=== PATIENT | female | born 1975 | race Caucasian/White ===

== ENCOUNTER → 2016-06-12 | Outpatient (CLI) | payer MEDICAID ==
--- NOTE | 2016-06-12 12:27 | MM ---
Reason for exam: clinical finding. Last mammogram was performed 1 year and 5 months ago. History: Benign US RT VAD breast biopsy of the right breast, February 25, 2013. Benign right breast aspiration of the right breast, February 25, 2013. Took hormonal contraceptives for 5 years. Indicated problem(s): lump or thickening in the left breast. Physical Findings: Nurse did not find any significant physical abnormalities on exam. MG 3D Diag Mammo W/Cad SAMY Bilateral CC and MLO view(s) were taken. Prior study comparison: January 03, 2015, bilateral MG 3d diag mammo w/cad SAMY. July 27, 2013, right breast MG diagnostic mammo RT w CAD. There are stable benign calcifications. There is no discrete abnormality including area of concern. These results were verbally communicated with the patient and result sheet given to the patient on 06/12/16. ASSESSMENT: Incomplete: need additional imaging evaluation, BI-RAD 0 RECOMMENDATION: Ultrasound of the left breast. Manage patient on a clinical basis.
--- NOTE | 2016-06-12 12:30 | USB ---
Reason for exam: additional evaluation requested from abnormal screening. History: Benign US RT VAD breast biopsy of the right breast, February 25, 2013. Benign right breast aspiration of the right breast, February 25, 2013. Took hormonal contraceptives for 5 years. US Breast LT Left breast ultrasound includes all four quadrants, the retroareolar region and axilla. Finding demonstrate a 4 x 2 x 5mm oval, cystic lesion at 1 o'clock, a 20 x 9 x 23mm oval, cystic lesion at 3 o'clock, a 5 x 5 x 6mm oval, cystic lesion at 3 o'clock, a 9 x 4 x 6mm oval, cystic lesion at 10 o'clock and a 4 x 3 x 3 round, cystic lesion with debris at the nipple for which a 6 month follow up is recommended. These results were verbally communicated with the patient and result sheet given to the patient on 06/12/16. ASSESSMENT: Probably benign, BI-RAD 3 RECOMMENDATION: Ultrasound of the left breast in 6 months. Manage patient on a clinical basis.
== END | disposition home or self-care (01) ==
LOC: RADMAMWWP 07:19
PROVIDERS: ATTEND Obstetrics & Gynecology
DX: R92.2 Inconclusive mammogram (principal); N63 Unspecified lump in breast; N60.09 Solitary cyst of unspecified breast; R92.8 Other abnormal and inconclusive findings on diagnostic imaging of breast
CPT/HCPCS: 76641; G0204; G0279

== ENCOUNTER → 2016-08-28 | Outpatient (CLI) | payer MEDICAID ==
[2016-08-28 07:30] LABS: CH 28.3; CHCM 34.8; HCT 42.1 % (34.0-46.0); HDW 2.47; HGB 14.7 gm/dL (11.4-16.0); MCH 28.5 pg (25.0-35.0); MCHC 34.9 g/dL (31.0-37.0); MCV 81.7 fL (80.0-100.0); Mean Platelet Volume 7.1; RBC 5.16 m/uL (3.80-5.40); RDW 13.3 % (11.5-15.5); WBC 6.6 k/uL (3.8-10.6)
[2016-08-28 07:49] LABS: ALT 29 U/L (9-52); AST 24 U/L (14-36); Alkaline Phosphatase 61 U/L (38-126); Anion Gap 12 mmol/L; Blood Urea Nitrogen 18 mg/dL (7-17); Calcium 9.9 mg/dL (8.4-10.2); Carbon Dioxide 23 mmol/L (22-30); Chloride 106 mmol/L (98-107); Cholesterol 173 mg/dL (<200); Glucose 94 mg/dL (74-99); HDL Cholesterol 85 mg/dL (40-60); Non-African American GFR(MDRD) >60 (>60 ml/min/1.73 sqM); Potassium 4.3 mmol/L (3.5-5.1); Sodium 141 mmol/L (137-145); Total Bilirubin 0.5 mg/dL (0.2-1.3); Total Protein 7.1 g/dL (6.3-8.2); Triglycerides 59 mg/dL (<150)
== END | disposition home or self-care (01) ==
LOC: LABWHC1 06:45
PROVIDERS: ATTEND Family Medicine
DX: Z00.00 Encounter for general adult medical examination without abnormal findings (principal)
CPT/HCPCS: 36415; 80053; 80061; 82306; 84443; 85027

== ENCOUNTER 2016-09-21 09:11 | Day surgery (SDC) | payer MEDICAID ==
[2016-09-18 13:02] VITALS: BMI 25.7
[~2016-09-21 09:11] MED LIST: LACTATED RINGERS 1,000 ML IV SCH; LIDOCAINE 1% 20 ML VIAL (10MG/ML) FOR IV START INTRADERMA PRN
[2016-09-21 10:35] VITALS: TEMP 97.9
[2016-09-21] MEDS ORDERED: PROPOFOL 10 MG/ML 20 ML VIAL IV ONE (11:11)
--- NOTE | 2016-09-21 11:32 | P.PCN ---
Date of Procedure: 09/21/16 Preoperative Diagnosis: Postoperative Diagnosis: Procedure(s) Performed: BRIEF HISTORY: Patient is a 41-year-old pleasant white female, scheduled for an elective colonoscopy as a part of screening for colorectal neoplasia. She does have family history of colon cancer in both her maternal grandparents. PROCEDURE PERFORMED: Colonoscopy. PREOPERATIVE DIAGNOSIS: Screening for colon cancer/family history of colon cancerIV sedation per Anesthesia. PROCEDURE: After informed consent was obtained, the patient, was brought into the endoscopy unit. IV sedation was administered by Anesthesia under continuous monitoring. Digital rectal examination was normal. Initially the Olympus CF- 160 flexible video colonoscope was then inserted in the rectum, gradually advanced into the cecum without any difficulty. Careful examination was performed as the scope was gradually being withdrawn. Ileocecal valve and the appendiceal orifice were visualized and appeared normal. Prep was excellent. Mucosa of the cecum, ascending colon, transverse colon, descending colon, sigmoid colon, and rectum appeared normal. Retroflexion was performed in the rectum and no lesions were seen. The patient tolerated the procedure well. IMPRESSION: Normal-appearing colon from rectum to cecum with no evidence of colorectal neoplasia . RECOMMENDATIONS: Findings of this examination were discussed with the patient as well as her family. She was advised to have a repeat screening colonoscopy in 5 years. Implants: Indications for Procedure: Operative Findings: Description of Procedure:
[2016-09-21 11:54] VITALS: BP 126/80; PULSE 85; RESP 18
== END 2016-09-21 12:13 | disposition home or self-care (01) ==
LOC: ORWHC2ENDO 09:11
PROVIDERS: ATTEND Internal Medicine Gastroenterology
DX: Z12.11 Encounter for screening for malignant neoplasm of colon (principal); Z80.0 Family history of malignant neoplasm of digestive organs; Z87.891 Personal history of nicotine dependence; F39 Unspecified mood [affective] disorder; Z79.899 Other long term (current) drug therapy
CPT/HCPCS: J2704; G0105

== ENCOUNTER 2017-02-05 06:35 | Emergency (ER) | payer MEDICAID ==
[2017-02-05 06:42] VITALS: PULSE 78
--- NOTE | 2017-02-05 07:56 | XR ---
EXAMINATION TYPE: XR finger RT DATE OF EXAM: 02/05/2017 COMPARISON: NONE HISTORY: Fell at gym bent thumb pain and swelling TECHNIQUE: Three-view right thumb FINDINGS: There is a comminuted fracture at the base of the distal phalanx right thumb. This has both transverse and longitudinal fracture fragments. Longitudinal fracture fragment extends in the mid ar ticular surface. Soft tissue swelling is present. IMPRESSION: 1. Comminuted fracture with intra-articular extension base of the distal phalanx right thumb
--- NOTE | 2017-02-05 08:10 | ED ---
General Adult HPI - General Chief complaint: Extremity Injury, Upper Stated complaint: hand injury Time Seen by Provider: 02/05/17 07:00 Source: patient, RN notes reviewed Mode of arrival: ambulatory Limitations: no limitations - History of Present Illness Initial comments: 42-year-old female presenting for evaluation of right thumb pain. Patient was exercising this morning, she was standing on a weight bench, fell and supported her fall with her right hand. She believes she struck her thumb on a piece of exercise equipment. She has had worsening pain in her thumb. Denies any hand pain. Denies any forearm or elbow pain. No head or neck trauma. No other trauma reported. Patient has no significant past medical history. Injury occurred approximately one hour prior to arrival. - Related Data Home Medications Medication Instructions Recorded Confirmed Escitalopram [Lexapro] 10 mg PO HS 09/18/16 02/05/17 Multivitamins, Thera [Multivitamin 1 tab PO AC-BRKFST 02/05/17 02/05/17 (formulary)] Allergies Allergy/AdvReac Type Severity Reaction Status Date / Time No Known Allergies Allergy Verified 02/05/17 07:27 Review of Systems ROS Statement: Those systems with pertinent positive or pertinent negative responses have been documented in the HPI. ROS Other: All systems not noted in ROS Statement are negative. 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 , FAMILY HX OF COLON CANCER. History of Any Multi-Drug Resistant Organisms: None Reported Past Surgical History: Adenoidectomy, Appendectomy, Breast Surgery, Hysterectomy , Tonsillectomy, Tubal Ligation Additional Past Surgical History / Comment(s): URETHRAL CYST, BREAST BX, VAGINAL HYSTERECTOMY WITH RECTOCELE REPAIR. Past Anesthesia/Blood Transfusion Reactions: No Reported Reaction, Motion Sickness Past Psychological History: Anxiety, Panic Disorder Smoking Status: Former smoker Past Alcohol Use History: Occasional Past Drug Use History: None Reported - Past Family History Mother Family Medical History: Cancer Father Family Medical History: Cancer General Exam Limitations: no limitations General appearance: alert, in no apparent distress Head exam: Present: atraumatic, normocephalic Eye exam: Present: normal appearance, PERRL ENT exam: Present: normal exam Neck exam: Present: normal inspection, full ROM. Absent: tenderness Respiratory exam: Present: normal lung sounds bilaterally. Absent: respiratory distress Cardiovascular Exam: Present: regular rate, normal rhythm Extremities exam: Present: other (Right hand, no bony tenderness over the metacarpals, no pain at the snuffbox, digits 2 through 4 and within normal limits, digit one has tenderness over the distal phalanx and decreased range of motion at the distal IP. There is overlying swelling and ecchymosis. No pain at the proximal joint) Neurological exam: Present: alert, oriented X3 Psychiatric exam: Present: normal affect, normal mood Skin exam: Present: warm, dry Course Vital Signs 02/05/17 02/05/17 06:39 08:28 Temperature 98 F 97.7 F Pulse Rate 78 78 Respiratory 18 20 Rate Blood Pressure 126/72 118/74 O2 Sat by Pulse 98 100 Oximetry Procedures - Orthopedic Splinting/Casting Injury #1 Side: right Upper Extremity Injury Location: hand, finger Upper Extremity Immobilizer: thumb spica, synthetic pre-padded splint Additional Comments: Neurovascularly intact pre-and post-splint. Medical Decision Making - Medical Decision Making 42-year-old female with right thumb injury. X-ray shows comminuted fracture with intra-articular extension at the base of the distal phalanx of the right thumb. This x-ray is reviewed by myself. Given the intra-articular injury, patient is placed in a splint and given hand surgery follow-up. Disposition Clinical Impression: Thumb fracture Disposition: HOME SELF-CARE Condition: Good Instructions: Finger Fracture (ED) Referrals: Trino Arredondo DO [Primary Care Provider] - 1-2 days Seamus Patel DO [Doctor of Osteopathic Medicine] - 1-2 days Time of Disposition: 08:10
[2017-02-05 08:29] VITALS: BP 118/74; RESP 20; TEMP 97.7
== END 2017-02-05 08:30 | disposition home or self-care (01) ==
LOC: EC 06:35
DX: S62.521A Displaced fracture of distal phalanx of right thumb, initial encounter for closed fracture (principal); F41.0 Panic disorder [episodic paroxysmal anxiety]; Z87.891 Personal history of nicotine dependence; Z79.899 Other long term (current) drug therapy; W18.01XA Striking against sports equipment with subsequent fall, initial encounter
CPT/HCPCS: 29125; 99283

== ENCOUNTER → 2017-08-08 | Outpatient (CLI) | payer MEDICAID ==
--- NOTE | 2017-08-09 04:02 | MR ---
EXAMINATION TYPE: MR ankle RT wo con DATE OF EXAM: 08/08/2017 COMPARISON: NONE HISTORY: Right Ankle, Pain in Ankle and Arch Standard multiplanar, multisequence MRI departmental protocol Multiplanar, multisequence images of the ankle were acquired. FINDINGS: The Achilles tendon is intact. Plantar fascia appears normal. There is a mild ankle joint e ffusion. There is fluid in the subtalar joint. The collateral ligaments are intact. The medial and la teral flexor tendons of the ankle are intact. Extensor tendons are intact. On the T2 images there is mild increased signal in the navicular bone with a bone bruise. There is no evidence of a fracture. I see no bony destructive process. IMPRESSION: There is mild ankle joint and subtalar joint effusion consistent with nonspecific synovitis. There is a mild bone bruise of the navicular. No fracture line seen. No evidence of ligament or tendon tear.
== END | disposition home or self-care (01) ==
LOC: RADMRIMAIN 18:41
PROVIDERS: ATTEND Orthopaedic Surgery
DX: M25.471 Effusion, right ankle (principal); S90.01XA Contusion of right ankle, initial encounter

== ENCOUNTER → 2017-11-27 | Outpatient (CLI) | payer MEDICAID ==
--- NOTE | 2017-11-27 12:28 | MM ---
Reason for exam: clinical finding. Last mammogram was performed 1 year and 5 months ago. History: Benign US RT VAD breast biopsy of the right breast, February 25, 2013. Benign right breast aspiration of the right breast, February 25, 2013. Took hormonal contraceptives for 5 years. Physical Findings: Nurse Summary: 0.5 x 0.5cm nodule in the right breast at 12 o'clock and a 1.5 x 1cm nodule in the left breast at 2 o'clock (nurse ts). MG 3D Diag Mammo W/Cad SAMY Bilateral CC and MLO view(s) were taken. LM, CC with magnification, and ML with magnification view(s) were taken of the left breast. Prior study comparison: June 12, 2016, bilateral MG 3d diag mammo w/cad SAMY. January 03, 2015, bilateral MG 3d diag mammo w/cad SAMY. The breast tissue is extremely dense which could obscure a lesion on mammography. There is a group of calcifications upper inner quadrant at posterior depth on left breast, magnifications view to be done. After magnifications views calcifications are course heterogeneous and increasing from priors. Biopsy markers noted. These results were verbally communicated with the patient and result sheet given to the patient on 11/27/17. ASSESSMENT: Incomplete: need additional imaging evaluation, BI-RAD 0 RECOMMENDATION: Ultrasound of the right breast. (palpable)
--- NOTE | 2017-11-27 12:31 | USB ---
Reason for exam: clinical finding. History: Benign US RT VAD breast biopsy of the right breast, February 25, 2013. Benign right breast aspiration of the right breast, February 25, 2013. Took hormonal contraceptives for 5 years. US Breast Limited BILAT Right limited breast ultrasound including focal area of concern, retroareolar and axilla demonstrates a 1.2 x 1.1 x 1.6cm oval, cystic lesion at 9 o'clock and a 1.8 x 0.8 x 1.8cm lobular, cystic lesion at 10 o'clock. Benign. Left complete breast ultrasound includes all four quadrants, the retroareolar region and axilla. Finding demonstrates a 2.6 x 1.7 x 2.8cm oval, cystic lesion at 3 o'clock BB and a 0.5 x 0.3 x 0.5cm oval, cystic lesion at 9 o'clock. Benign. These results were verbally communicated with the patient and result sheet given to the patient on 11/27/17. ASSESSMENT: Suspicious, BI-RAD 4 RECOMMENDATION: Stereotactic core biopsy of the left breast. Called Dr. Paez with mammographic findings and has scheduled an appointment for the patient for 12/19/17 at 10:[address] Fitzpatrick. Biopsy scheduled for 11/28/17 at 8:00. PRELIMINARY REPORT CALLED AND FAXED TO DR. FITZPATRICK ON 11/27/17.
== END | disposition home or self-care (01) ==
LOC: RADMAMWWP 07:24
PROVIDERS: ATTEND Obstetrics & Gynecology
DX: R92.8 Other abnormal and inconclusive findings on diagnostic imaging of breast (principal)
CPT/HCPCS: 77062; 77066

== ENCOUNTER → 2017-11-28 | Day surgery (SDC) | payer MEDICAID ==
[2017-11-28 07:14] VITALS: RESP 16; BMI 27.4
[2017-11-28 09:24] VITALS: BP 122/80; PULSE 78; TEMP 98.6
--- NOTE | 2017-11-28 09:30 | MM ---
EXAMINATION TYPE: MG stereo VAD BX LT DATE OF EXAM: 11/28/2017 COMPARISON: Prior mammogram November 27, 2017 and older studies. CLINICAL HISTORY: Abnormal mammogram TECHNIQUE: Stereotactic guided core biopsy of left breast with clip placement and follow-up two-view mammogram. FINDINGS: The procedure of stereotactic guided core biopsy was explained to the patient. Benefits, alternatives, and risks were discussed. An informed consent was then obtained. Cranial approach was chosen as calcifications are best seen on cc views. I performed the localization, then performed the remainder of the procedure. A vacuum assisted biopsy gun was used to obtain multiple core samples. The patient tolerated the procedure well without any immediate complication. The patient was kept in the radiology department for short stay after the procedure and then discharged home in stable condition. Targeted calcifications are identified in specimen mammogram. Post biopsy mammogram shows the clip to appear less than 1 cm superior to position relative to the targeted area of concern on the preprocedure images. IMPRESSION: SUCCESSFUL, UNCOMPLICATED STEREOTACTIC GUIDED CORE BIOPSY OF AREA OF CONCERN IN THE LEFT BREAST, FULL PATHOLOGY RESULTS TO FOLLOW. Intermediate index of suspicion noted at time of procedure. Pathology Results: Benign BREAST, LEFT, STEREOTACTIC CORE BIOPSY: Fibrocystic changes including cysts, fibrosis, columnar cell change, and sclerosing adenosis with calcifications. Focal pseudoangiomatous stromal hyperplasia (PASH). Recommendation Surgical consult of the left breast. (PASWinifred) LAW
== END ==
LOC: RADMAMWWP 07:03
PROVIDERS: ATTEND Surgery
DX: N60.32 Fibrosclerosis of left breast (principal); N60.22 Fibroadenosis of left breast; N62 Hypertrophy of breast; R92.1 Mammographic calcification found on diagnostic imaging of breast; R92.8 Other abnormal and inconclusive findings on diagnostic imaging of breast
CPT/HCPCS: 88305; 19081; A4648; J2001

== ENCOUNTER → 2018-02-03 | Outpatient (CLI) | payer MEDICAID ==
--- NOTE | 2018-02-03 23:05 | MR ---
EXAMINATION TYPE: MR shoulder LT wo con DATE OF EXAM: 02/03/2018 COMPARISON: None HISTORY: Lt shoulder pain x 6 mos TECHNIQUE: Multiplanar, multisequence imaging of the left shoulder is performed without contrast. FINDINGS: The supraspinatus tendon is intact. There is minor spurring on the inferior aspect of the AC joint an d minimal subacromial impingement. The glenoid ventura appear intact. Biceps tendon is intact. Subscapu priti tendon is intact. There is no evidence of a fracture. I see no bony destructive process. IMPRESSION: Mild spurring at the AC joint and minimal subacromial impingement. Otherwise negative exam. No eviden ce of rotator cuff tear.
== END | disposition home or self-care (01) ==
LOC: RADMRIMAIN 19:02
PROVIDERS: ATTEND Family Medicine
DX: M75.82 Other shoulder lesions, left shoulder (principal); M25.812 Other specified joint disorders, left shoulder

== ENCOUNTER → 2018-06-02 | Outpatient (CLI) | payer MEDICAID ==
--- NOTE | 2018-06-02 10:10 | MM ---
Reason for exam: follow-up at short interval from prior study. Last mammogram was performed 6 months ago. History: Benign MG stereo VAD BX LT of the left breast, November 28, 2017. Benign US RT VAD breast biopsy of the right breast, February 25, 2013. Benign right breast aspiration of the right breast, February 25, 2013. Took hormonal contraceptives for 5 years. Physical Findings: Nurse did not find any significant physical abnormalities on exam. MG 3D Diag Mammo W/Cad LT CC and MLO view(s) were taken of the left breast. Prior study comparison: November 27, 2017, bilateral MG 3d diag mammo w/cad SAMY. June 12, 2016, bilateral MG 3d diag mammo w/cad SAMY. The breast tissue is extremely dense which could obscure a lesion on mammography. Previous mammotome biopsy in the left breast. There is chronic nodularity in the left breast posterior upper outer correlates with cysts on ultrasound 11/27/17. These results were verbally communicated with the patient and result sheet given to the patient on 06/02/18. ASSESSMENT: Benign, BI-RAD 2 RECOMMENDATION: Follow-up diagnostic mammogram of both breasts in 6 months. Back on schedule.
== END ==
LOC: RADMAMWWP 06:56
PROVIDERS: ATTEND Surgery
DX: R92.8 Other abnormal and inconclusive findings on diagnostic imaging of breast (principal)
CPT/HCPCS: 77061; 77065

== ENCOUNTER → 2018-08-06 | Outpatient (CLI) | payer MEDICAID ==
[2018-08-06 08:36] LABS: Basophils % (A) 1 %; Eosinophils # (A) 0.2 k/uL (0-0.7); Eosinophils % (A) 3 %; HCT 43.8 % (34.0-46.0); Lymphocytes # (A) 1.1 k/uL (1.0-4.8); Lymphocytes % (A) 25 %; MCH 27.2 pg (25.0-35.0); MCHC 31.9 g/dL (31.0-37.0); MCV 85.1 fL (80.0-100.0); Mean Platelet Volume 7.1; Monocytes # (A) 0.3 k/uL (0-1.0); Monocytes % (A) 5 %; Neutrophils % (A) 64 %; Platelet Count 282 k/uL (150-450); RBC 5.14 m/uL (3.80-5.40); RDW 13.8 % (11.5-15.5); WBC 4.6 k/uL (3.8-10.6)
[2018-08-06 16:46] LABS: African American GFR (CKD) 71.7 (60.0-200.0); Albumin 4.3 g/dL (3.80-4.90); Albumin/Globulin Ratio 2.53 (1.60-3.17); Anion Gap 6.7 mmol/L (4.00-12.00); BUN/Creat Ratio 14.55 Ratio (12.00-20.00); Carbon Dioxide 26.3 mmol/L (21.6-31.8); Globulin 1.7 g/dL (1.6-3.3); Potassium 4.3 mmol/L (3.5-5.5); Total Bilirubin 0.5 mg/dL (0.2-1.2)
== END | disposition home or self-care (01) ==
LOC: LABWHC1 08:04
PROVIDERS: ATTEND Family Medicine
DX: R10.13 Epigastric pain (principal)
CPT/HCPCS: 36415; 80053; 82150; 83013; 83690; 85025

== ENCOUNTER → 2018-08-11 | Outpatient (CLI) | payer MEDICAID ==
--- NOTE | 2018-08-11 13:09 | US ---
EXAMINATION TYPE: US abdomen complete DATE OF EXAM: 08/11/2018 COMPARISON: 06/19/2012 ultrasound CLINICAL HISTORY: R10.9 abdominal pain. EXAM MEASUREMENTS: Liver Length: 12.0cm Gallbladder Wall: 0.2 cm CBD: 0.5m Spleen: 10.2 Right Kidney: 10.5 x 4.4 x 4.8cm Left Kidney: 9.8 x 4.2 x 4.2cm Extensive midline bowel gas Pancreas: Obscured by bowel gas Liver: previous hemangioma not seen on today's ultrasound Gallbladder: wnl Evidence for sonographic Elizalde's sign: no CBD: wnl Spleen: wnl Right Kidney: No hydronephrosis or masses seen Left Kidney: No hydronephrosis or masses seen Upper IVC: wnl Abd Aorta: wnl The liver is homogenous. The intrahepatic portion of the IVC and proximal abdominal aorta are within normal limits. There is no evidence of cholelithiasis. Common bile duct is unremarkable. The visu alized portions of the pancreas are homogenous. The spleen is unremarkable. Kidneys are symmetric a nd free of hydronephrosis. No renal lesions are seen. IMPRESSION: No sonographic evidence of cholelithiasis nor acute cholecystitis. Note the previously se en probable hemangioma on the exam of 06/19/2012 is not seen on today's examination.
== END | disposition home or self-care (01) ==
LOC: RADUSWWP 10:12
PROVIDERS: ATTEND Internal Medicine Geriatric Medicine
DX: R10.9 Unspecified abdominal pain (principal)
CPT/HCPCS: 76700

== ENCOUNTER 2018-09-06 07:32 | Day surgery (SDC) | payer MEDICAID ==
[2018-09-03 15:45] VITALS: BMI 29.2
[2018-09-06 07:41] VITALS: TEMP 97.2
[2018-09-06] MEDS ORDERED: LIDOCAINE 1% INJ 10MG/ML (20 ML MDV) ONE (08:37)
[2018-09-06] MEDS ORDERED: GLYCOPYRROLATE 0.2 MG/ML 2 ML VIAL ONE (08:37)
[2018-09-06] MEDS ORDERED: PROPOFOL 10 MG/ML 20 ML VIAL IV ONE (08:37)
--- NOTE | 2018-09-06 08:48 | P.PCN ---
Date of Procedure: 09/06/18 Procedure(s) Performed: BRIEF HISTORY: Patient is a 43-year-old, pleasant, white female, scheduled for an upper endoscopy as a part of evaluation long-standing history of GERD. She has been on Prilosec 20 mg daily but they have been was in symptoms and was increased to twice daily and symptoms are significantly improved. She is scheduled for an upper endoscopy were complicated reflux disease. PROCEDURE PERFORMED: Esophagogastroduodenoscopy with biopsy. PREOPERATIVE DIAGNOSIS: Long-standing history of GERD. IV sedation per anesthesia. PROCEDURE: After informed consent was obtained, the patient was brought into the endoscopy unit. IV sedation was administered by Anesthesia under continuous monitoring. Initially the Olympus GIF-140 video endoscope was inserted into the mouth. Esophagus intubated without any difficulty. It was gradually advanced into the stomach and duodenum and carefully examined. The bulb and the second part of the duodenum appeared normal. The scope at this time was withdrawn to the stomach, adequately insufflated with air, and upon careful examination, mucosa of the antrum had scattered erosions and biopsies were done from this area. The body, cardia and the fundus appeared normal. The scope was then withdrawn into the esophagus. small hiatal hernia noted. The GE junction was located at 35 cm from the incisors. There was a short tongue of Garcia's appearing mucosa extending 5 mm proximal to the GE junction and this was biopsied. The rest of the esophagus appeared normal. There were no erosions or ulcerations seen and the patient tolerated the procedure well. IMPRESSION: 1. Short tongue of Garcia's appearing mucosa just proximal to the GE junction status post biopsy 2. Mild antral gastritis 3. Small sliding Hiatal hernia RECOMMENDATIONS: The findings of this examination were discussed with the patient as well as her family. She was advised to follow with the biopsy results. She can continue with Prilosec 20 mg twice daily half hour before breakfast and dinnertime and follow antireflux measures. If the biopsy confirms the presence of Garcia's esophagus, she can have a repeat upper endoscopy in 2 years
[2018-09-06 09:11] VITALS: BP 132/65; PULSE 68; RESP 18
== END 2018-09-06 09:23 | disposition home or self-care (01) ==
LOC: ORWHC2ENDO 07:32
PROVIDERS: ATTEND Internal Medicine Gastroenterology
DX: K22.70 Barrett's esophagus without dysplasia (principal); K29.50 Unspecified chronic gastritis without bleeding; K21.0 Gastro-esophageal reflux disease with esophagitis; K44.9 Diaphragmatic hernia without obstruction or gangrene; Z87.891 Personal history of nicotine dependence; Z79.899 Other long term (current) drug therapy
CPT/HCPCS: 88305; 43239; J2001; J2704

== ENCOUNTER → 2018-12-08 | Outpatient (CLI) | payer MEDICAID ==
--- NOTE | 2018-12-08 11:45 | MM ---
Reason for exam: follow-up at short interval from prior study. Last mammogram was performed 6 months ago. History: Benign MG stereo VAD BX LT of the left breast, November 28, 2017. Benign US RT VAD breast biopsy of the right breast, February 25, 2013. Benign right breast aspiration of the right breast, February 25, 2013. Took hormonal contraceptives for 5 years. Physical Findings: Nurse Summary: 0.5-1cm nodule in the left breast at 12 o'clock, 3 o'clock (nurse kp). MG 3D Diag Mammo W/Cad SAMY Bilateral CC and MLO view(s) were taken. Prior study comparison: June 02, 2018, left breast MG 3d diag mammo w/cad LT. November 27, 2017, bilateral MG 3d diag mammo w/cad SAMY. Previous mammotome biopsy in the right and left breast. Two palpable markers on the left. Underlying circumscribed masses, one larger, one smaller in the left upper outer quadrant. Otherwise, no significant change. These results were verbally communicated with the patient and result sheet given to the patient on 12/08/18. ASSESSMENT: Incomplete: need additional imaging evaluation, BI-RAD 0 RECOMMENDATION: Ultrasound of the left breast. (12-4 o'clock)
--- NOTE | 2018-12-08 11:47 | USB ---
Reason for exam: additional evaluation requested from abnormal screening. History: Benign MG stereo VAD BX LT of the left breast, November 28, 2017. Benign US RT VAD breast biopsy of the right breast, February 25, 2013. Benign right breast aspiration of the right breast, February 25, 2013. Took hormonal contraceptives for 5 years. US Breast Limited LT Left limited breast ultrasound including focal area of concern, retroareolar and axilla demonstrates a 0.5 x 0.6 x 0.5cm cystic, benign lesion at 12 o'clock, a 1.6 x 1.9 x 0.7cm cystic, benign lesion at 1 o'clock and a 1.4 x 1.6 x 1.1cm cystic, benign lesion at 3 o'clock. Annual exam can be performed in diagnostic clinic. Scanned 12-4 o'clock. These results were verbally communicated with the patient and result sheet given to the patient on 12/08/18. ASSESSMENT: Probably benign, BI-RAD 3 RECOMMENDATION: Follow-up diagnostic mammogram of both breasts in 6 months.
== END | disposition home or self-care (01) ==
LOC: RADMAMWWP 09:35
PROVIDERS: ATTEND Surgery
DX: R92.8 Other abnormal and inconclusive findings on diagnostic imaging of breast (principal)
CPT/HCPCS: 77062; 77066

== ENCOUNTER 2019-01-23 19:56 | Emergency (ER) | payer MEDICAID, OTHER ==
[2019-01-23] MEDS ORDERED: ACETAMINOPHEN TAB 325 MG TAB PO STA (20:21)
--- NOTE | 2019-01-23 20:28 | ED ---
General Adult HPI - General Chief complaint: Head Injury Stated complaint: Headache Dizziness Time Seen by Provider: 01/23/19 20:05 Source: patient Mode of arrival: ambulatory Limitations: no limitations - History of Present Illness Initial comments: Patient is a 43-year-old female presenting to the emergency department with a chief complaint of head injury. She states yesterday she tripped, fell forward and hit her head on a metal door. Patient denies loss of consciousness at time of incident. She does report some nausea whenever she turns too quickly but denies any vomiting. Patient does report mild photosensitivity only very bright light. Patient denies any blurry vision, gait instability, left versus right sided weakness or paresthesias. Patient reports headache that was initially on the right side of her head and now has moved to the left side of her head. Patient reports taking Tylenol with minimal improvement. Patient does have a history of a brain bleed and is not on blood thinners. - Related Data Home Medications Medication Instructions Recorded Confirmed Escitalopram [Lexapro] 5 mg PO HS 09/18/16 09/03/18 Omeprazole [PriLOSEC] 20 mg PO AC-BID 09/03/18 09/03/18 Allergies Allergy/AdvReac Type Severity Reaction Status Date / Time No Known Allergies Allergy Verified 01/23/19 20:03 Review of Systems ROS Statement: Those systems with pertinent positive or pertinent negative responses have been documented in the HPI. ROS Other: All systems not noted in ROS Statement are negative. Past Medical History Past Medical History: Asthma, GERD/Reflux, Seizure Disorder Additional Past Medical History / Comment(s): HX OF SEIZURES CAUSED BY SUBDURAL HEMATOMA -NO SEIZURES FOR 1 YEAR-NO MEDS ., HX OF ASTHMA WHICH RESOLVED WHEN SHE QUIT SMOKING. , FAMILY HX OF COLON CANCER. BRAIN TUMOR History of Any Multi-Drug Resistant Organisms: None Reported Past Surgical History: Adenoidectomy, Appendectomy, Breast Surgery, Hysterectomy, Tonsillectomy, Tubal Ligation Additional Past Surgical History / Comment(s): URETHRAL CYST, BREAST BX, VAGINAL HYSTERECTOMY WITH RECTOCELE REPAIR. Past Anesthesia/Blood Transfusion Reactions: No Reported Reaction, Motion Sickness Past Psychological History: Anxiety Smoking Status: Former smoker Past Alcohol Use History: Rare Past Drug Use History: None Reported - Past Family History Mother Family Medical History: Cancer Father Family Medical History: Cancer General Exam Limitations: no limitations General appearance: alert, in no apparent distress Head exam: Present: atraumatic, normocephalic, normal inspection. Absent: other (Negative Lombardo sign, negative hemotympanum, negative raccoon eyes) Eye exam: Present: normal appearance, PERRL, EOMI. Absent: scleral icterus, conjunctival injection, nystagmus Pupils: Present: normal accommodation ENT exam: Present: normal exam, normal oropharynx, mucous membranes moist, TM's normal bilaterally, normal external ear exam Neck exam: Present: normal inspection, tenderness ([place] mild tenderness at the right side of her neck near the base of the skull.), full ROM Respiratory exam: Present: normal lung sounds bilaterally Cardiovascular Exam: Present: regular rate, normal rhythm, normal heart sounds Extremities exam: Present: normal inspection, full ROM, normal capillary refill, other (+2 ulnar and radial pulses bilaterally. +2 dorsalis pedis and posterior tibialis bilaterally.) Back exam: Present: normal inspection, full ROM Neurological exam: Present: alert, oriented X3, CN II-XII intact, normal gait Psychiatric exam: Present: normal affect, normal mood Skin exam: Present: warm, dry, intact, normal color Course Vital Signs 01/23/19 01/23/19 20:00 21:15 Temperature 97.8 F 98.7 F Pulse Rate 72 87 Respiratory 18 20 Rate Blood Pressure 147/95 146/78 O2 Sat by Pulse 100 98 Oximetry Medical Decision Making - Medical Decision Making Patient is a 43-year-old female presenting to emergency with chief complaint of a head injury. On exam there is no signs of injury to the head. There was no loss of consciousness, nausea or vomiting. Patient does have some photosensitivity. Patient is neurovascularly intact. CT of the brain and C- spine obtained with no signs of intracranial hemorrhage, midline shift, or skull fractures. Patient denies amnesia or confusion. I have low suspicion for concussion. Patient advised to alternate between Tylenol and ibuprofen for pain control. Strict return parameters were thoroughly discussed with patient was understanding and agreeable. Case discussed with physician. Disposition Clinical Impression: Head injury due to trauma Disposition: HOME SELF-CARE Condition: Stable Instructions (If sedation given, give patient instructions): Concussion (ED) Additional Instructions: Alternate between Tylenol and ibuprofen for pain control. Please return to emergency department if symptoms worsen. Is patient prescribed a controlled substance at d/c from ED?: No Referrals: Shaheed Lee MD [Primary Care Provider] - 1-2 days Time of Disposition: 20:58
--- NOTE | 2019-01-23 20:42 | CT ---
EXAMINATION TYPE: CT brain julisa jackson con DATE OF EXAM: 01/23/2019 COMPARISON: CT brain 04/23/2013 HISTORY: fell hitting head against metal door CT DLP: 1352.1 mGycm Automated exposure control for dose reduction was used. Multiple axial sections were obtained of the brain without contrast. Helical axial sections were obta ined from the skull base to T1 vertebra without contrast. FINDINGS: Ventricles have normal size. There is no mass effect nor midline shift. There is no sign of intracran ial hemorrhage. Calvarium is intact. Skull base is intact. There is some straightening of the cervical vertebra. There is mild disc space narrowing at C6-7. The re is posterior endplate spur formation at C6-7 and minimal encroachment on the spinal canal. There i s no spinal stenosis. There is developmentally large spinal canal. Facet joints are intact. IMPRESSION: Negative CT scan of the brain. No change. Spondylosis at C6-7. No fracture seen.
[2019-01-23 21:16] VITALS: BP 146/78; PULSE 87; RESP 20; TEMP 98.7
== END 2019-01-23 21:15 | disposition home or self-care (01) ==
LOC: EC 19:56
DX: S09.90XA Unspecified injury of head, initial encounter (principal); K21.9 Gastro-esophageal reflux disease without esophagitis; F41.9 Anxiety disorder, unspecified; Z87.891 Personal history of nicotine dependence; Z79.899 Other long term (current) drug therapy; Z86.79 Personal history of other diseases of the circulatory system; W01.198A Fall on same level from slipping, tripping and stumbling with subsequent striking against other object, initial encounter; Y92.69 Other specified industrial and construction area as the place of occurrence of the external cause; Y99.0 Civilian activity done for income or pay
CPT/HCPCS: 70450; 72125; 99283

== ENCOUNTER → 2019-10-20 | Outpatient (CLI) | payer MEDICAID | END | disposition home or self-care (01) | LOC: RADUSWWP 09:32 | PROVIDERS: ATTEND Radiology Diagnostic Radiology | DX: Z53.9 Procedure and treatment not carried out, unspecified reason (principal) ==

== ENCOUNTER → 2019-10-20 | Outpatient (CLI) | payer MEDICAID ==
--- NOTE | 2019-10-20 09:33 | MM ---
Reason for exam: additional evaluation requested from prior study. Last mammogram was performed 10 months ago. History: Benign MG stereo VAD BX LT of the left breast, November 28, 2017. Benign US RT VAD breast biopsy of the right breast, February 25, 2013. Benign right breast aspiration of the right breast, February 25, 2013. Took hormonal contraceptives for 5 years. Physical Findings: Nurse did not find any significant physical abnormalities on exam. MG 3D Diag Mammo W/Cad SAMY Bilateral CC and MLO view(s) were taken. Spot compression CC view(s) were taken of the left breast. Prior study comparison: December 08, 2018, bilateral MG 3d diag mammo w/cad SAMY. June 02, 2018, left breast MG 3d diag mammo w/cad LT. The breast tissue is extremely dense which could obscure a lesion on mammography. Previous mammotome biopsy in the right and left breast. Focal asymmetry 12mm left breast 7cm from nipple midle depth medially CC and spot CC view only. These results were verbally communicated with the patient and result sheet given to the patient on 10/20/19. ASSESSMENT: Incomplete: need additional imaging evaluation, BI-RAD 0 RECOMMENDATION: Ultrasound of the left breast.
--- NOTE | 2019-10-20 09:36 | USB ---
Reason for exam: additional evaluation requested from abnormal screening. History: Benign MG stereo VAD BX LT of the left breast, November 28, 2017. Benign US RT VAD breast biopsy of the right breast, February 25, 2013. Benign right breast aspiration of the right breast, February 25, 2013. Took hormonal contraceptives for 5 years. US Breast Limited LT Technologist: Stacy More Left limited breast ultrasound including focal area of concern, retroareolar and axilla demonstrates a 0.6 x 0.4 x 0.3cm oval, lobular, cystic lesion at 10 o'clock increased through transmission, probable simple cyst, a 0.9 x 0.6 x 0.6cm round, lobular, cystic lesion at 10 o'clock with septation and a 0.9 x 1.0 x 0.5cm oval, lobular, cystic cluster at 12 o'clock. These results were verbally communicated with the patient and result sheet given to the patient on 10/20/19. ASSESSMENT: Probably benign, BI-RAD 3 RECOMMENDATION: Follow-up diagnostic mammogram and ultrasound of the left breast in 6 months.
== END | disposition home or self-care (01) ==
LOC: RADMAMWWP 07:37
PROVIDERS: ATTEND Surgery
DX: R92.8 Other abnormal and inconclusive findings on diagnostic imaging of breast (principal)
CPT/HCPCS: 77062; 77066

== ENCOUNTER → 2019-12-09 | Outpatient (CLI) | payer MEDICAID ==
--- NOTE | 2019-12-14 15:07 | USB ---
Reason for exam: clinical finding. History: Benign MG stereo VAD BX LT of the left breast, November 28, 2017. Benign US RT VAD breast biopsy of the right breast, February 25, 2013. Benign right breast aspiration of the right breast, February 25, 2013. Took hormonal contraceptives for 5 years. Physical Findings: Nurse Summary: right breast 7 o'clock 1 x 1.5cm, movable, tender, soft (nurse ts). US Breast RT Right complete breast ultrasound includes all four quadrants, the retroareolar region and axilla. Finding demonstrates a 0.4 x 0.3 x 0.3cm oval, cystic cluster at 1 o'clock, a 2.0 x 2.0 x 0.9cm oval, cystic lesion at 7 o'clock BB, a 2.2 x 1.8 x 1.3cm oval, cystic lesion at 8 o'clock, a 0.6 x 0.5 x 0.4cm oval, cystic lesion at 9 o'clock, a 1.8 x 0.9 x 1.2cm oval, cystic cluster at 10 o'clock, duct ectasia at the posterior nipple and a 1.8 x 1.0 x 0.6cm axilla node. These results were verbally communicated with the patient and result sheet given to the patient on 12/09/19. ASSESSMENT: Probably benign, BI-RAD 3 RECOMMENDATION: Follow-up diagnostic mammogram and ultrasound of both breasts in 6 months. Back on schedule for April 2020.
== END | disposition home or self-care (01) ==
LOC: RADUSWWP 09:19
PROVIDERS: ATTEND Surgery
DX: N63.10 Unspecified lump in the right breast, unspecified quadrant (principal)

== ENCOUNTER → 2020-04-19 | Outpatient (CLI) | payer MEDICAID ==
--- NOTE | 2020-04-19 11:49 | MM ---
Reason for exam: follow-up at short interval from prior study. Last mammogram was performed 6 months ago. History: Benign MG stereo VAD BX LT of the left breast, November 28, 2017. Benign US RT VAD breast biopsy of the right breast, February 25, 2013. Benign right breast aspiration of the right breast, February 25, 2013. Took hormonal contraceptives for 5 years. Physical Findings: Nurse Summary: 1.5cm nodule in the right breast at 7 o'clock, 0.5cm nodule in the left breast at 4 o'clock, 2cm nodule in the right breast at 8 o'clock, a 2cm soft, movable lump right breast at 8 o'clock, 1.5cm hard nodule right breast 7 o'clock, small nodule left breast at 4 o'clock (nurse TM). MG 3D Diag Mammo W/Cad SAMY Bilateral CC and MLO view(s) were taken. Prior study comparison: October 20, 2019, bilateral MG 3d diag mammo w/cad SAMY. December 08, 2018, bilateral MG 3d diag mammo w/cad SAMY. The breast tissue is extremely dense which could obscure a lesion on mammography. Previous mammotome biopsy in the right and left breast. No significant new findings when compared with previous films. These results were verbally communicated with the patient and result sheet given to the patient on 04/19/20. ASSESSMENT: Incomplete: need additional imaging evaluation, BI-RAD 0 RECOMMENDATION: Ultrasound of both breasts.
--- NOTE | 2020-04-19 11:55 | USB ---
Reason for exam: additional evaluation requested from abnormal screening. History: Benign MG stereo VAD BX LT of the left breast, November 28, 2017. Benign US RT VAD breast biopsy of the right breast, February 25, 2013. Benign right breast aspiration of the right breast, February 25, 2013. Took hormonal contraceptives for 5 years. US Breast BILAT Technologist: Stacy More Left complete breast ultrasound includes all four quadrants, the retroareolar region and axilla. Finding demonstrates multiple cysts seen largest measured, a 0.8 x 1.1 x 0.7cm cystic cluster at 12 o'clock, a 0.4 x 0.3cm cystic lesion at 3 o'clock, a 0.9 x 0.8 x 0.5cm cystic lesion at 3 o'clock, a 1.7 x 1.4 x 1.1cm cystic cluster at 4 o'clock, a 0.7 x 0.6 x 0.6cm cystic lesion at 5 o'clock correlates with palpable and a 0.5 x 0.5 x 0.3cm cystic cluster at 11 o'clock. Right complete breast ultrasound includes all four quadrants, the retroareolar region and axilla. Finding demonstrates multiple cysts seen largest measured, a 1.5 x 1.3 x 0.8cm cystic lesion at 7 o'clock correlates with palpable, a 2.2 x 2.2 x 1.0cm cystic lesion at 8 o'clock correlates with palpable, duct at 9 o'clock, a 0.5 x 0.5 x 0.4cm cystic cluster at 9 o'clock, a 0.7 x 0.6 x 0.4cm cystic cluster at 8 o'clock and a 1.9 x 0.8 x 1.1cm cystic cluster at 10 o'clock, some internal echoes. These results were verbally communicated with the patient and result sheet given to the patient on 04/19/20. ASSESSMENT: Suspicious, BI-RAD 4 RECOMMENDATION: Aspiration of the right breast. Manage patient on a clinical basis. (right 10 o'clock complex cyst) Called office with mammographic findings and has scheduled an appointment for the patient for 06/09/20 at 11:[address] Richards. Aspiration scheduled for 05/04/20 at 12:00. PRELIMINARY REPORT CALLED AND FAXED TO DR. RICHARDS ON 04/19/20.
== END ==
LOC: RADMAMWWP 08:37
PROVIDERS: ATTEND Surgery
DX: N60.01 Solitary cyst of right breast (principal); N60.02 Solitary cyst of left breast; R92.2 Inconclusive mammogram
CPT/HCPCS: 77062; 77066

== ENCOUNTER → 2020-05-04 | Day surgery (SDC) | payer MEDICAID ==
[2020-05-04 12:26] VITALS: RESP 16
[2020-05-04 13:42] VITALS: BP 142/83; PULSE 73; TEMP 98
--- NOTE | 2020-05-04 14:03 | USB ---
EXAMINATION TYPE: US breast aspiration single RT DATE OF EXAM: 05/04/2020 CLINICAL HISTORY: R92.8 abnormal mammogram. TECHNIQUE: Ultrasound guided vaccuum assisted cyst aspiration of the right breast. COMPARISON: 04/19/2020 FINDINGS: The ultrasound guided cyst aspiration procedure was explained to the patient. The risks, benefits, alternatives were discussed. An informed consent was then obtained. Timeout was performed. The patient was placed in supine positioning for imaging and for the procedure. The overlying skin was prepped with betadine and sterilely draped in usual sterile fashion. Lidocaine 1% was used as anesthetic into the skin and deeper breast tissue up to area of concern in the breast. Under ultrasound guidance, an 18-gauge vacuum assisted syringe was used to obtain a small dark droplet of cyst aspirate. The adjacent cysts remained intact and can be utilized as a marker to re-localize this region. A biopsy clip was not left in lesion. Cyst aspiration was labeled and transferred to pathology for additional evaluation. Good hemostasis was obtained with direct pressure. Discharge instructions were discussed with the patient. The patient will follow up with the referring physician for results. Postprocedure mammogram: No post procedure mammogram. The patient tolerated the procedure well without any immediate complication. The patient was discharged to home in stable condition. IMPRESSION: 1. Successful ultrasound guided cyst aspiration right breast. Recommendations: 1. Recommendations are pending pathology results. Pathology Results: Benign RIGHT BREAST, TEN O'CLOCK, ULTRASOUND GUIDED CYST ASPIRATION: Minimally cellular specimen consisting of blood and rare clusters of bland ductal cells, non-diagnostic. Recommendation Follow up ultrasound of the right breast in 6 months. LAW
== END ==
LOC: RADUSWWP 11:59
PROVIDERS: ATTEND Surgery
DX: R92.8 Other abnormal and inconclusive findings on diagnostic imaging of breast (principal); N60.01 Solitary cyst of right breast
CPT/HCPCS: 88104; 76942; 19000; J2001

== ENCOUNTER → 2021-03-24 | Outpatient (CLI) | payer MEDICAID ==
[2021-03-24 15:15] LABS: Basophils # (A) 0.03 X 10*3/uL (0.00-0.10); Basophils % (A) 0.8 %; Eosinophils % (A) 2.5 %; HCT 40.4 % (37.2-46.3); Lymphocytes # (A) 0.97 X 10*3/uL (0.90-5.00); Lymphocytes % (A) 24.7 %; MCH 27.5 pg (27.0-32.0); MCHC 32.2 g/dL (32.0-37.0); MCV 85.6 fL (80.0-97.0); Mean Platelet Volume 9.8 fL (9.5-12.2); Monocytes # (A) 0.44 X 10*3/uL (0.20-1.00); Monocytes % (A) 11.2 %; Neutrophils # (A) 2.38 X 10*3/uL (1.80-7.70); Neutrophils % (A) 60.5 %; Platelet Count 237 X 10*3/uL (140-440); RBC 4.72 X 10*6/uL (4.10-5.20); RDW 13.5 % (11.5-14.5); WBC 3.93 X 10*3/uL (4.50-10.00)
[2021-03-24 15:47] LABS: African American GFR (CKD) 95.9 (60.0-200.0); Albumin 4.2 g/dL (3.8-4.9); Albumin/Globulin Ratio 2.1 (1.60-3.17); Anion Gap 8.6 mmol/L (10.00-18.00); BUN/Creat Ratio 12.71 Ratio (12.00-20.00); Blood Urea Nitrogen 10.8 mg/dL (9.0-27.0); Calcium 8.9 mg/dL (8.7-10.3); Carbon Dioxide 24.6 mmol/L (20.0-27.5); Magnesium 1.9 mg/dL (1.5-2.4); Non-African American GFR(CKD) 82.7 (60.0-200.0); Potassium 4.5 mmol/L (3.5-5.5); Total Bilirubin 0.2 mg/dL (0.30-1.20); Total Protein 6.1 g/dL (6.2-8.2)
== END | disposition home or self-care (01) ==
LOC: LABWHC1 08:44
PROVIDERS: ATTEND Nurse Practitioner Gerontology
DX: I10 Essential (primary) hypertension (principal)
CPT/HCPCS: 36415; 80053; 83735; 84443; 85025

== ENCOUNTER → 2021-04-21 | Outpatient (CLI) | payer MEDICAID ==
--- NOTE | 2021-04-24 08:33 | MM ---
Reason for exam: screening (asymptomatic). Last mammogram was performed 1 year ago. History: Benign US breast aspiration single RT of the right breast, May 04, 2020. Benign MG stereo VAD BX LT of the left breast, November 28, 2017. Benign US RT VAD breast biopsy of the right breast, February 25, 2013. Benign right breast aspiration of the right breast, February 25, 2013. Took hormonal contraceptives for 5 years. Physical Findings: A clinical breast exam by your physician is recommended on an annual basis and results should be correlated with mammographic findings. MG 3D Screening Mammo W/Cad Bilateral CC and MLO view(s) were taken. Prior study comparison: April 19, 2020, bilateral MG 3d diag mammo w/cad SAMY. October 20, 2019, bilateral MG 3d diag mammo w/cad SAMY. The breast tissue is extremely dense which could obscure a lesion on mammography. Stable benign calcifications. There is no discrete abnormality. No significant changes when compared with prior studies. ASSESSMENT: Benign, BI-RAD 2 RECOMMENDATION: Routine screening mammogram of both breasts in 1 year.
== END | disposition home or self-care (01) ==
LOC: RADMAMWWP 09:16
PROVIDERS: ATTEND Surgery
DX: Z12.31 Encounter for screening mammogram for malignant neoplasm of breast (principal)
CPT/HCPCS: 77063; 77067

== ENCOUNTER → 2022-05-15 | Outpatient (CLI) | payer MEDICAID ==
--- NOTE | 2022-05-16 09:44 | MM ---
Reason for Exam: Screening (asymptomatic). Last screening mammogram was performed 12 month(s) ago. Patient History: Menarche at age 14. First Full-Term at age 17. Hysterectomy at age 40. Patient used Hormonal Contraceptives for 5 years. 05/04/2020, Benign Cyst Aspiration on the right side. 11/28/2017, Benign Core Biopsy on the left side. 02/25/2013, Benign Cyst Aspiration on the right side. 02/25/2013, Benign Core Biopsy on the right side. Risk Values: Claire 5 year model risk: 1.5%. NCI Lifetime model risk: 10.7%. Prior Study Comparison: 10/20/2019 Bilateral Diagnostic Mammogram, [facility]. 04/19/2020 Bilateral Diagnostic Mammogram, [facility]. 04/21/2021 Bilateral Screening Mammogram, [facility]. Tissue Density: The breast tissue is extremely dense which could obscure a lesion on mammography. Findings: Analyzed By CAD. Right breast biopsy clip. Bilateral scattered benign-appearing calcifications. Left breast biopsy clip. Left breast There is no suspicious group of microcalcifications or new suspicious mass in either breast. Overall Assessment: Benign, BI-RAD 2 Management: Screening Mammogram of both breasts in 1 year. A clinical breast exam by your physician is recommended on an annual basis and results should be correlated with mammographic findings. [facility] will attempt to contact patient to return for supplemental views and ultrasound if indicated. Electronically signed and approved by: Darci Cheatham DO
== END | disposition home or self-care (01) ==
LOC: RADMAMWWP 08:20
PROVIDERS: ATTEND Surgery
DX: Z12.31 Encounter for screening mammogram for malignant neoplasm of breast (principal)
CPT/HCPCS: 77063; 77067

== ENCOUNTER → 2022-12-06 | Outpatient (CLI) | payer MEDICAID ==
--- NOTE | 2022-12-07 10:21 | XR ---
EXAMINATION TYPE: XR lumbar spine 3V DATE OF EXAM: 12/06/2022 Comparison: None Clinical History: 47-year-old female right-sided low back pain for several months FINDINGS: Smaller absent T12 ribs. Vertebral body heights are preserved and alignment is maintained. Mild degenerative disc disease in the lower thoracic spine. Mild facet arthropathy lower lumbar spine . Impression: Mild degenerative disc disease lower thoracic spine. Mild facet arthropathy lower lumbar spine. No ve rtebral compression collapse or malalignment.
== END | disposition home or self-care (01) ==
LOC: RADXRMAIN 17:23
PROVIDERS: ATTEND Internal Medicine Geriatric Medicine
DX: M51.36 Other intervertebral disc degeneration, lumbar region (principal); M47.816 Spondylosis without myelopathy or radiculopathy, lumbar region
CPT/HCPCS: 72100

== ENCOUNTER → 2023-02-08 | Day surgery (SDC) | payer MEDICAID ==
[2023-02-05 12:50] VITALS: BMI 30.2
[~2023-02-08] MED LIST changes: -LIDOCAINE 1% 20 ML VIAL (10MG/ML) FOR IV START INTRADERMA PRN; +LIDOCAINE 1% INJ 10MG/ML (20 ML MDV) ONE; +PROPOFOL 10 MG/ML 20 ML VIAL IV ONE
[2023-02-08 07:09] VITALS: TEMP 98.1
--- NOTE | 2023-02-08 08:32 | P.PCN ---
Date of Procedure: 02/08/23 Procedure(s) Performed: Brief history: Patient is a pleasant 48-year-old white female scheduled for an elective upper endoscopy as well as colonoscopy as a part of evaluation of GERD/Garcia's esophagus and screening for colon cancer. Her sister was diagnosed with colon cancer late cancer at age 42. Procedure performed: Esophagogastroduodenoscopy with biopsy Colonoscopy Preoperative diagnosis: GERD/Garcia's esophagus Screening for colon cancer/family history of colon cancer Anesthesia: MAC Procedure: After informed consent was obtained from the patient was brought into the endoscopy unit and IV sedation was administered by anesthesia under continuous monitoring. Initially upper endoscopy was done. The Olympus GF 160 video endoscope was inserted inserted into the mouth and esophagus intubated without any difficulty and was gradually advanced into the stomach and duodenum and carefully examined. The bulb and second part of the duodenum appeared normal. The scope was then withdrawn into the stomach adequately insufflated with air and upon careful examination the antrum and body, cardia and fundus appeared normal. The scope was then withdrawn into the esophagus. The hiatal hernia noted. The GE junction was located at 40 cm to the incisors. It appeared irregular and there was short segment of Garcia's esophagus extending 3 mm proximal to the GE junction which was biopsied. Rest of the esophagus appeared normal and the patient tolerated the procedure well. She continued to remain sedated. Initial digital rectal examination was normal. Olympus CF 160 video colonoscope was then inserted into the rectum and gradually advanced to the cecum without any difficulty. Careful examination was performed as the scope was gradually being withdrawn. The prep was excellent. The cecum, ascending colon, transverse colon, descending colon, sigmoid colon and rectum appeared normal. Retroflexion was performed in the rectum and no lesions were noted. Patient tolerated the procedure well. Impression: 1. Upper endoscopy revealed small hiatal hernia and short segment Garcia's esophagus 2. Colonoscopy was within normal limits with no evidence of colorectal neoplasia Recommendations: Findings of this examination were discussed with the patient as well as her family. She was advised to follow with the biopsy results. Continue with Protonix 40 mg daily and follow antireflux measures. If the biopsy confirms the presence of Garcia's esophagus he can have a repeat upper endoscopy in 3 years. Recommend repeat colonoscopy in 5 years because of the family history of colon cancer
[2023-02-08 09:14] VITALS: BP 137/76; PULSE 64; RESP 18
== END ==
LOC: ORWHC2ENDO 06:44
PROVIDERS: ATTEND Internal Medicine Gastroenterology
DX: Z12.11 Encounter for screening for malignant neoplasm of colon (principal); K29.50 Unspecified chronic gastritis without bleeding; K22.70 Barrett's esophagus without dysplasia; K21.9 Gastro-esophageal reflux disease without esophagitis; K44.9 Diaphragmatic hernia without obstruction or gangrene; Z80.0 Family history of malignant neoplasm of digestive organs; Z79.899 Other long term (current) drug therapy
CPT/HCPCS: 88305; 45378; 43239; J2001; J2704

== ENCOUNTER 2023-12-26 09:38 | Emergency (ER) | payer MEDICAID ==
[2023-12-26 10:02] VITALS: RESP 20; TEMP 97.8
--- NOTE | 2023-12-26 10:14 | ED ---
Abdominal Pain HPI - General Chief Complaint: Abdominal Pain Stated Complaint: R flank pain Time Seen by Provider: 12/26/23 09:45 Source: patient, RN notes reviewed Mode of arrival: ambulatory Limitations: no limitations - History of Present Illness Initial Comments: 46-year-old female that presents to the emergency department complaint of right quad abdominal pain. Patient states she had increasing symptoms last 1 to 2 weeks. Patient states that pain is worse when she eats. She has had increasing reflux issues. Patient denies any chest pain or shortness of breath. She did attempt to contact her primary care physician and GI physician in which she could not be seen for 2 weeks at the earliest with GI in 2 months for primary care physician. Patient states that she has known reflux issues she has Garcia's esophagus which she has yearly EGD and colonoscopy by Dr. Pimentel. She denies any further fever but states that she has had hot and cold flashes. - Related Data Home Medications Medication Instructions Recorded Confirmed Pantoprazole Sodium [Protonix] 40 mg PO DAILY 04/26/20 02/05/23 Previous Rx's Medication Instructions Recorded Famotidine [Pepcid] 20 mg PO BID #28 tablet 12/26/23 Metoclopramide [Reglan] 10 mg PO TID PRN #15 tab 12/26/23 Allergies Allergy/AdvReac Type Severity Reaction Status Date / Time No Known Allergies Allergy Verified 12/26/23 10:02 Review of Systems ROS Statement: Those systems with pertinent positive or pertinent negative responses have been documented in the HPI. ROS Other: All systems not noted in ROS Statement are negative. Past Medical History Past Medical History: Asthma, GERD/Reflux, Seizure Disorder Additional Past Medical History / Comment(s): Garcia's esophagus, HX OF SEIZURES CAUSED BY SUBDURAL HEMATOMA -NO SEIZURES since 2019 ., HX OF ASTHMA WHICH RESOLVED WHEN SHE QUIT SMOKING. History of Any Multi-Drug Resistant Organisms: None Reported Past Surgical History: Adenoidectomy, Appendectomy, Breast Surgery, Hysterectomy, Tonsillectomy, Tubal Ligation Additional Past Surgical History / Comment(s): URETHRAL CYST, Bilat BREAST BX, VAGINAL HYSTERECTOMY WITH RECTOCELE REPAIR. Past Anesthesia/Blood Transfusion Reactions: No Reported Reaction Past Psychological History: Anxiety Smoking Status: Former smoker Past Alcohol Use History: None Reported Past Drug Use History: None Reported - Past Family History Mother Family Medical History: Cancer Father Family Medical History: Cancer Sister(s) Family Medical History: Cancer Additional Family Medical History / Comment(s): Colorectal. General Exam Limitations: no limitations General appearance: alert, in no apparent distress Head exam: Present: atraumatic, normocephalic, normal inspection Eye exam: Present: normal appearance, PERRL, EOMI. Absent: scleral icterus, conjunctival injection, periorbital swelling Neck exam: Present: normal inspection. Absent: tenderness, meningismus, lymphadenopathy Respiratory exam: Present: normal lung sounds bilaterally. Absent: respiratory distress, wheezes, rales, rhonchi, stridor Cardiovascular Exam: Present: regular rate, normal rhythm, normal heart sounds. Absent: systolic murmur, diastolic murmur, rubs, gallop, clicks GI/Abdominal exam: Present: soft, tenderness, normal bowel sounds. Absent: distended, guarding, rebound, rigid Back exam: Present: CVA tenderness (R). Absent: CVA tenderness (L) Course Vital Signs 12/26/23 09:59 Temperature 97.8 F Pulse Rate 50 L Respiratory 20 Rate Blood Pressure 126/72 O2 Sat by Pulse 99 Oximetry Medical Decision Making - Medical Decision Making Was pt. sent in by a medical professional or institution (, PA, [employer], urgent care, hospital, or fpc...) When possible be specific @ -No Did you speak to anyone other than the patient for history (EMS, parent, family, police, friend...)? What history was obtained from this source @ -No Did you review nursing and triage notes (agree or disagree)? Why? @ -I reviewed and agree with nursing and triage notes Were old charts reviewed (outside hosp., previous admission, EMS record, old EKG, old radiological studies, urgent care reports/EKG's, fpc records)? Report findings @ -No old charts were reviewed Differential Diagnosis (chest pain, altered mental status, abdominal pain women, abdominal pain men, vaginal bleeding, weakness, fever, dyspnea, syncope, headache, dizziness, GI bleed, back pain, seizure, CVA, palpatations, mental health, musculoskeletal)? @ -Differential Abdominal Pain Women: Appendicitis, Cholecystitis, diverticulosis, ischemic bowel, pancreatitis, hepatitis, UTI, gastroenteritis, AAA, incarcerated hernia, bowel obstruction, constipation, inflammatory bowel, hepatitis, peptic ulcer disease, splenic infarction, perforated viscus, vulvitis, ovarian torsion, PID, kidney stone, placenta abruption, this is not meant to be an all-inclusive list EKG interpreted by me (3pts min.). @ -None X-rays interpreted by me (1pt min.). @ -None done CT interpreted by me (1pt min.). @ -CT abdomen pelvis showing no acute intra-abdominal process. U/S interpreted by me (1pt. min.). @ -[Ultrasound shows no evidence of cholecystitis, cholelithiasis, there is dilated renal pelvis on the right What testing was considered but not performed or refused? (CT, X-rays, U/S, labs)? Why? @ -None What meds were considered but not given or refused? Why? @ -None Did you discuss the management of the patient with other professionals (professionals i.e. , PA, [employer], lab, RT, psych nurse, social welfare clerk, breakfast hostess, teacher, first aid officer, case coordinator)? Give summary @ -No Was smoking cessation discussed for >3mins.? @ -No Was critical care preformed (if so, how long)? @ -No Were there social determinants of health that impacted care today? How? (Homelessness, low income, unemployed, alcoholism, drug addiction, transporta tion, low edu. Level, literacy, decrease access to med. care, custodial, rehab)? @ -No Was there de-escalation of care discussed even if they declined (Discuss DNR or withdrawal of care, Hospice)? DNR status @ -No What co-morbidities impacted this encounter? (DM, HTN, Smoking, COPD, CAD, Cancer, CVA, ARF, Chemo, Hep., AIDS, mental health diagnosis, sleep apnea, morbid obesity)? @ -None Was patient admitted / discharged? Hospital course, mention meds given and route, prescriptions, significant lab abnormalities, going to OR and other pertinent info. @ -Discharge patient presented for right flank pain increasing reflux issues. Patient had negative workup patient will need outpatient HIDA scan and follow-up with GI, surgery. She may add Maalox, Pepcid for her reflux return parameters were discussed. Undiagnosed new problem with uncertain prognosis? @ -No Drug Therapy requiring intensive monitoring for toxicity (Heparin, Nitro, Insulin, Cardizem)? @ -No Were any procedures done? @ -No Diagnosis/symptom? @Abdominal pain, biliary dyskinesia Acute, or Chronic, or Acute on Chronic? @ -Acute Uncomplicated (without systemic symptoms) or Complicated (systemic symptoms)? @ -Uncomplicated Side effects of treatment? @ -No Exacerbation, Progression, or Severe Exacerbation? @ -No Poses a threat to life or bodily function? How? (Chest pain, [place], [place], pneumonia, PE, COPD, DKA, ARF, appy, cholecystitis, CVA, Diverticulitis, Homicidal, Suicidal, threat to staff... and all critical care pts) @ -No - Lab Data Result diagrams: 12/26/23 10:25 12/26/23 10:25 Lab Results 12/26/23 12/26/23 12/26/23 Range/Units 10:25 10:25 10:25 WBC 7.5 (3.8-10.6) k/uL RBC 5.15 (3.80-5.40) m/uL Hgb 14.4 (11.4-16.0) gm/dL Hct 44.3 (34.0-46.0) % MCV 85.9 (80.0-100.0) fL MCH 27.9 (25.0-35.0) pg MCHC 32.5 (31.0-37.0) g/dL RDW 12.7 (11.5-15.5) % Plt Count 266 (150-450) k/uL MPV 7.0 Neutrophils % 65 % Lymphocytes % 25 % Monocytes % 6 % Eosinophils % 2 % Basophils % 1 % Neutrophils # 4.9 (1.3-7.7) k/uL Lymphocytes # 1.9 (1.0-4.8) k/uL Monocytes # 0.4 (0-1.0) k/uL Eosinophils # 0.1 (0-0.7) k/uL Basophils # 0.0 (0-0.2) k/uL Sodium 139 (137-145) mmol/L Potassium 4.2 (3.5-5.1) mmol/L Chloride 110 H (98-107) mmol/L Carbon Dioxide 25 (22-30) mmol/L Anion Gap 4 mmol/L BUN 16 (7-17) mg/dL Creatinine 0.88 (0.52-1.04) mg/dL Est GFR (CKD-EPI)AfAm >90 (>60 ml/min/1.73 sqM) Est GFR (CKD-EPI)NonAf 79 (>60 ml/min/1.73 sqM) Glucose 91 (74-99) mg/dL Calcium 9.3 (8.4-10.2) mg/dL Total Bilirubin 0.6 (0.2-1.3) mg/dL AST 36 (14-36) U/L ALT 30 (4-34) U/L Alkaline Phosphatase 77 (38-126) U/L Total Protein 6.8 (6.3-8.2) g/dL Albumin 4.4 (3.5-5.0) g/dL Lipase 107 (23-300) U/L Urine Color Colorless Urine Appearance Clear (Clear) Urine pH 6.0 (5.0-8.0) Ur Specific [place] 1.003 (1.001-1.035) Urine Protein Negative (Negative) Urine Glucose (UA) Negative (Negative) Urine Ketones Negative (Negative) Urine Blood Negative (Negative) Urine Nitrite Negative (Negative) Urine Bilirubin Negative (Negative) Urine Urobilinogen <2.0 (<2.0) mg/dL Ur Leukocyte Esterase Negative (Negative) Disposition Clinical Impression: Abdominal pain, Biliary dyskinesia, GERD (gastroesophageal reflux disease) Disposition: HOME SELF-CARE Condition: Stable Instructions (If sedation given, give patient instructions): Abdominal Pain (ED) Additional Instructions: Please return to the Emergency Department if symptoms worsen or any other concerns. Prescriptions: Famotidine [Pepcid] 20 mg PO BID #28 tablet Metoclopramide [Reglan] 10 mg PO TID PRN #15 tab PRN Reason: Nausea Is patient prescribed a controlled substance at d/c from ED?: No Referrals: Trino Arredondo DO [Primary Care Provider] - 1-2 days Time of Disposition: 12:15
[2023-12-26 10:42] LABS: Basophils % (A) 1 %; Eosinophils # (A) 0.1 k/uL (0-0.7); Eosinophils % (A) 2 %; HCT 44.3 % (34.0-46.0); HGB 14.4 gm/dL (11.4-16.0); Lymphocytes # (A) 1.9 k/uL (1.0-4.8); Lymphocytes % (A) 25 %; MCH 27.9 pg (25.0-35.0); MCHC 32.5 g/dL (31.0-37.0); MCV 85.9 fL (80.0-100.0); Monocytes # (A) 0.4 k/uL (0-1.0); Monocytes % (A) 6 %; Neutrophils # (A) 4.9 k/uL (1.3-7.7); Neutrophils % (A) 65 %; Platelet Count 266 k/uL (150-450); RBC 5.15 m/uL (3.80-5.40); RDW 12.7 % (11.5-15.5); WBC 7.5 k/uL (3.8-10.6)
[2023-12-26 10:43] LABS: Appearance,Urine Clear (Clear); Bilirubin,Urine Negative (Negative); Blood,Urine Negative (Negative); Color,Urine Colorless; Glucose,Urine (UA) Negative (Negative); Ketones,Urine Negative (Negative); Leukocyte Esterase,Urine Negative (Negative); Nitrite,Urine Negative (Negative); Protein,Urine Negative (Negative); Specific Gravity,Urine 1.003 (1.001-1.035); Urobilinogen,Urine <2.0 mg/dL (<2.0)
[2023-12-26 10:54] LABS: ALT 30 U/L (4-34); AST 36 U/L (14-36); African American GFR (CKD) >90 (>60 ml/min/1.73 sqM); Albumin 4.4 g/dL (3.5-5.0); Alkaline Phosphatase 77 U/L (38-126); Anion Gap 4 mmol/L; Blood Urea Nitrogen 16 mg/dL (7-17); Calcium 9.3 mg/dL (8.4-10.2); Carbon Dioxide 25 mmol/L (22-30); Chloride 110 mmol/L (98-107); Glucose 91 mg/dL (74-99); Lipase 107 U/L (23-300); Non-African American GFR(CKD) 79 (>60 ml/min/1.73 sqM); Potassium 4.2 mmol/L (3.5-5.1); Sodium 139 mmol/L (137-145); Total Bilirubin 0.6 mg/dL (0.2-1.3); Total Protein 6.8 g/dL (6.3-8.2)
--- NOTE | 2023-12-26 11:09 | US ---
EXAMINATION TYPE: US gallbladder DATE OF EXAM: 12/26/2023 COMPARISON: NONE CLINICAL INDICATION: Female, 48 years old with history of pain; Right flank pain x 2 weeks with nause a; HX appendectomy and Barots esophagitis TECHNIQUE: Grayscale and color Doppler imaging of the right upper quadrant was performed. FINDINGS: EXAM MEASUREMENTS: Liver Length: 13.1 cm Gallbladder Wall: 0.2 cm CBD: 0.7 cm Right Kidney: 10.2 x 4.9 x 4.9 cm Pancreas: wnl Liver: wnl Gallbladder: wnl Evidence for sonographic Elizalde's sign: No CBD: wnl Right Kidney: Prominent renal pelvis IMPRESSION: No significant abnormality seen. [facility], , 12/26/2023 11:06 AM
--- NOTE | 2023-12-26 12:09 | CT ---
EXAMINATION TYPE: CT abdomen pelvis wo con DATE OF EXAM: 12/26/2023 COMPARISON: None CLINICAL INDICATION: Female, 48 years old with history of right flank pain; PHH, rt flank pain that c omes and goes for one month/ gross hematuria/ frequent urination/ has prior dlp 511.1 TECHNIQUE: CT scan of the abdomen and pelvis is performed without oral or IV contrast. CT DLP: 511.[address] CTDI: mGy Automated exposure control for dose reduction was used. FINDINGS: Within the limitations of a non-contrast study, the following observations are made. The lungs are clear. Gallbladder is normal and there is no gallstone, wall thickening, pericholecystic fluid or distention . There is no biliary ductal dilatation. There is no organomegaly of the liver, pancreas, spleen or adrenal glands. There are no renal calcifications or hydronephrosis. The caliber of the abdominal aorta is normal and there is no retroperitoneal adenopathy or hemorrhage . The bowel loops are normal in caliber is no evidence of obstruction. No inflammatory changes are iden tified in the mesentery and there is no free intraperitoneal air or fluid. There is no pelvic mass, free fluid, abscess or adenopathy. There is mild to moderate diverticulosis of the colon without CT evidence of diverticulitis. The osseous structures and soft tissues are unremarkable. IMPRESSION: No acute changes within the abdomen or pelvis. There is no renal calcification or hydronephrosis. [facility], , 12/26/2023 12:07 PM
[2023-12-26 12:38] VITALS: BP 126/77; PULSE 53
== END 2023-12-26 12:37 | disposition home or self-care (01) ==
LOC: EC 09:38
DX: K82.8 Other specified diseases of gallbladder (principal); K21.00 Gastro-esophageal reflux disease with esophagitis, without bleeding; Z87.891 Personal history of nicotine dependence; Z90.49 Acquired absence of other specified parts of digestive tract; Z79.899 Other long term (current) drug therapy
CPT/HCPCS: 36415; 74176; 76705; 80053; 81003; 83690; 85025; 99284

== ENCOUNTER 2024-01-20 10:24 | Emergency (ER) | payer MEDICAID ==
[2024-01-20 10:40] VITALS: TEMP 98.3
[2024-01-20] MEDS: LORazepam 2 MG/ML INJ IV STA (11:00)
[2024-01-20 11:13] LABS: Basophils % (A) 1 %; Eosinophils # (A) 0.2 k/uL (0-0.7); Eosinophils % (A) 2 %; HGB 13.7 gm/dL (11.4-16.0); Lymphocytes # (A) 1.4 k/uL (1.0-4.8); Lymphocytes % (A) 20 %; MCHC 33.3 g/dL (31.0-37.0); MCV 84.2 fL (80.0-100.0); Mean Platelet Volume 6.8; Monocytes # (A) 0.4 k/uL (0-1.0); Monocytes % (A) 5 %; Neutrophils # (A) 4.7 k/uL (1.3-7.7); Neutrophils % (A) 70 %; Platelet Count 255 k/uL (150-450); RBC 4.87 m/uL (3.80-5.40); RDW 12.7 % (11.5-15.5); WBC 6.7 k/uL (3.8-10.6)
[2024-01-20 11:21] LABS: ALT 20 U/L (4-34); AST 26 U/L (14-36); African American GFR (CKD) >90 (>60 ml/min/1.73 sqM); Albumin 4.3 g/dL (3.5-5.0); Alkaline Phosphatase 69 U/L (38-126); Anion Gap 5 mmol/L; Blood Urea Nitrogen 11 mg/dL (7-17); Calcium 9.1 mg/dL (8.4-10.2); Carbon Dioxide 23 mmol/L (22-30); Chloride 107 mmol/L (98-107); Glucose 98 mg/dL (74-99); Non-African American GFR(CKD) 83 (>60 ml/min/1.73 sqM); Potassium 3.8 mmol/L (3.5-5.1); Sodium 135 mmol/L (137-145); Total Bilirubin 0.6 mg/dL (0.2-1.3); Total Protein 6.7 g/dL (6.3-8.2)
--- NOTE | 2024-01-20 11:22 | ED ---
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 Patient states she has tried multiple seizure medications but they all make her feel tired and slow so she stopped all seizure medications. Patient states she has about 2 seizures a year. Patient states she still continues to drive even though she was told not to. Patient had a seizure at work according to workers and did hit the wall on the way down she is complaining of a slight headache and some neck pain in the trapezius muscle area. Patient denies any recent fever chills or cough. Patient denies any difficulty breathing or shortness of breath. Patient denies any abdominal pain patient has any nausea vomiting diarrhea. According to the coworker patient had a full-blown tonic-clonic seizure - Related Data Home Medications Medication Instructions Recorded Confirmed Pantoprazole Sodium [Protonix] 40 mg PO DAILY 04/26/20 02/05/23 Previous Rx's Medication Instructions Recorded Famotidine [Pepcid] 20 mg PO BID #28 tablet 12/26/23 Metoclopramide [Reglan] 10 mg PO TID PRN #15 tab 12/26/23 Allergies Allergy/AdvReac Type Severity Reaction Status Date / Time No Known Allergies Allergy Verified 12/26/23 10:02 Review of Systems ROS Statement: Those systems with pertinent positive or pertinent negative responses have been documented in the HPI. ROS Other: All systems not noted in ROS Statement are negative. Past Medical History Past Medical History: Asthma, GERD/Reflux, Seizure Disorder Additional Past Medical History / Comment(s): Garcia's esophagus, HX OF SEIZURES CAUSED BY SUBDURAL HEMATOMA -NO SEIZURES since 2019 ., HX OF ASTHMA WHICH RESOLVED WHEN SHE QUIT SMOKING. History of Any Multi-Drug Resistant Organisms: None Reported Past Surgical History: Adenoidectomy, Appendectomy, Breast Surgery, Hysterectomy, Tonsillectomy, Tubal Ligation Additional Past Surgical History / Comment(s): URETHRAL CYST, Bilat BREAST BX, VAGINAL HYSTERECTOMY WITH RECTOCELE REPAIR. Past Anesthesia/Blood Transfusion Reactions: No Reported Reaction Past Psychological History: Anxiety Smoking Status: Former smoker Past Alcohol Use History: None Reported Past Drug Use History: None Reported - Past Family History Mother Family Medical History: Cancer Father Family Medical History: Cancer Sister(s) Family Medical History: Cancer Additional Family Medical History / Comment(s): Colorectal. General Exam - General Exam Comments Initial Comments: GENERAL: Patient is well-developed and well-nourished. Patient is nontoxic and well- hydrated and is in mild distress. ENT: Neck is soft and supple. No significant lymphadenopathy is noted. Oropharynx is clear. Moist mucous membranes. Neck has full range of motion without eliciting any pain. EYES: The sclera were anicteric and conjunctiva were pink and moist. Extraocular movements were intact and pupils were equal round and reactive to light. Eyelids were unremarkable. PULMONARY: Unlabored respirations. Good breath sounds bilaterally. No audible rales rhonchi or wheezing was noted. CARDIOVASCULAR: There is a regular rate and rhythm without any murmurs gallops or rubs. ABDOMEN: Soft and nontender with normal bowel sounds. SKIN: Skin is clear with no lesions or rashes and otherwise unremarkable. NEUROLOGIC: Patient is alert and oriented x3. Cranial nerves II through XII are grossly intact. Motor and sensory are also intact. Normal speech, volume and content. Symmetrical smile. MUSCULOSKELETAL: Normal extremities with adequate strength and full range of motion. LYMPHATICS: No significant lymphadenopathy is noted PSYCHIATRIC: Normal psychiatric evaluation. Course Vital Signs 01/20/24 01/20/24 01/20/24 10:27 11:05 11:37 Temperature 98.3 F Pulse Rate 81 85 87 Respiratory 14 14 14 Rate Blood Pressure 152/98 152/98 128/73 O2 Sat by Pulse 99 98 100 Oximetry Medical Decision Making - Medical Decision Making Was pt. sent in by a medical professional or institution (, PA, [employer], urgent care, hospital, or custodial...) When possible be specific @ -No Did you speak to anyone other than the patient for history (EMS, parent, family, police, friend...)? What history was obtained from this source @ -No Did you review nursing and triage notes (agree or disagree)? Why? @ -I reviewed and agree with nursing and triage notes Were old charts reviewed (outside hosp., previous admission, EMS record, old EKG, old radiological studies, urgent care reports/EKG's, custodial records)? Report findings @ -No old charts were reviewed Differential Diagnosis? @ -Differential Seizure: Recurrent seizure disorder, febrile seizure, alcohol withdrawal, stimulants, meningitis, encephalitis, intercranial hemorrhage, intracranial tumor, stroke, eclampsia, thyrotoxicosis, hypocalcemia, hyponatremia, hypernatremia, hypomagnesemia, psychogenic, this is not meant to be an all-inclusive list. EKG interpreted by me (3pts min.). @ -As above X-rays interpreted by me (1pt min.). @ -None done CT interpreted by me (1pt min.). @ -CT of the brain shows no acute abnormality. CT of the C-spine shows no acute normality. U/S interpreted by me (1pt. min.). @ -None done What testing was considered but not performed or refused? (CT, X-rays, U/S, labs)? Why? @ -None What meds were considered but not given or refused? Why? @ -None Did you discuss the management of the patient with other professionals (professionals i.e. , PA, [employer], lab, RT, psych nurse, director social service, campus interviews intern, teacher, community service officer, case resource manager)? Give summary @ -No Was smoking cessation discussed for >3mins.? @ -No Was critical care preformed (if so, how long)? @ -No Were there social determinants of health that impacted care today? How? (Homelessness, low income, unemployed, alcoholism, drug addiction, transportation, low edu. Level, literacy, decrease access to med. care, shelter, rehab)? @ -No Was there de-escalation of care discussed even if they declined (Discuss DNR or withdrawal of care, Hospice)? DNR status @ -No What co-morbidities impacted this encounter? (DM, HTN, Smoking, COPD, CAD, C ancer, CVA, ARF, Chemo, Hep., AIDS, mental health diagnosis, sleep apnea, morbid obesity)? @ -None Was patient admitted / discharged? Hospital course, mention meds given and route, prescriptions, significant lab abnormalities, going to OR and other pertinent info. @ -Patient was given 0.5 mg of Ativan for both anxiety and seizure prophylaxis. Patient did not want to restart any other seizure medications. Patient CAT scan was normal. Patient will follow-up with her neurologist Undiagnosed new problem with uncertain prognosis? @ -No Drug Therapy requiring intensive monitoring for toxicity (Heparin, Nitro, Insulin, Cardizem)? @ -No Were any procedures done? @ -No Diagnosis/symptom? @ -Seizure Acute, or Chronic, or Acute on Chronic? @ -Acute Uncomplicated (without systemic symptoms) or Complicated (systemic symptoms)? @ -Complicated Side effects of treatment? @ -No Exacerbation, Progression, or Severe Exacerbation? @ -No Poses a threat to life or bodily function? How? (Chest pain, [place], [place], pneumonia, PE, COPD, DKA, ARF, appy, cholecystitis, CVA, Diverticulitis, Homicidal, Suicidal, threat to staff... and all critical care pts) @ -No - Lab Data Result diagrams: 01/20/24 11:05 01/20/24 11:05 Lab Results 01/20/24 01/20/24 Range/Units 11:05 11:05 WBC 6.7 (3.8-10.6) k/uL RBC 4.87 (3.80-5.40) m/uL Hgb 13.7 (11.4-16.0) gm/dL Hct 41.0 (34.0-46.0) % MCV 84.2 (80.0-100.0) fL MCH 28.0 (25.0-35.0) pg MCHC 33.3 (31.0-37.0) g/dL RDW 12.7 (11.5-15.5) % Plt Count 255 (150-450) k/uL MPV 6.8 Neutrophils % 70 % Lymphocytes % 20 % Monocytes % 5 % Eosinophils % 2 % Basophils % 1 % Neutrophils # 4.7 (1.3-7.7) k/uL Lymphocytes # 1.4 (1.0-4.8) k/uL Monocytes # 0.4 (0-1.0) k/uL Eosinophils # 0.2 (0-0.7) k/uL Basophils # 0.0 (0-0.2) k/uL Sodium 135 L (137-145) mmol/L Potassium 3.8 (3.5-5.1) mmol/L Chloride 107 (98-107) mmol/L Carbon Dioxide 23 (22-30) mmol/L Anion Gap 5 mmol/L BUN 11 (7-17) mg/dL Creatinine 0.84 (0.52-1.04) mg/dL Est GFR (CKD-EPI)AfAm >90 (>60 ml/min/1.73 sqM) Est GFR (CKD-EPI)NonAf 83 (>60 ml/min/1.73 sqM) Glucose 98 (74-99) mg/dL Calcium 9.1 (8.4-10.2) mg/dL Total Bilirubin 0.6 (0.2-1.3) mg/dL AST 26 (14-36) U/L ALT 20 (4-34) U/L Alkaline Phosphatase 69 (38-126) U/L Total Protein 6.7 (6.3-8.2) g/dL Albumin 4.3 (3.5-5.0) g/dL Disposition Clinical Impression: Generalized seizure Disposition: HOME SELF-CARE Instructions (If sedation given, give patient instructions): Seizure/Epilepsy Discharge Instructions & Follow-Up Additional Instructions: Patient should not drive until cleared by a neurologist Is patient prescribed a controlled substance at d/c from ED?: No Referrals: Trino Arredondo DO [Primary Care Provider] - 1-2 days Time of Disposition: 11:50
--- NOTE | 2024-01-20 11:31 | CT ---
EXAMINATION TYPE: CT brain cspine wo con CT DLP: 1334.6 mGycm, Automated exposure control for dose reduction was used. DATE OF EXAM: 01/20/2024 11:22 AM COMPARISON: CT Brain and cspine 01/23/2019 CLINICAL INDICATION:Female, 48 years old with history of Trauma; seizure, pain TECHNIQUE: Brain: Multiple axial CT images of the brain were obtained without IV contrast. Cspine: Axial CT images from the skull base to the inferior aspect of T2 we obtained without intraven ous contrast. Coronal and sagittal reformatted images were also reviewed. FINDINGS: Brain: Extra-axial spaces: No abnormal extra-axial fluid collections. Ventricular system: Within normal limits Cerebral parenchyma: No acute intraparenchymal hemorrhage or mass effect. The gaspar-white junction is well differentiated. Cerebellum: Unremarkable. Mass effect: No evidence of midline shift. Intracranial vasculature: unremarkable Soft tissues: Normal. Calvarium/osseous structures: No depressed skull fracture. Paranasal sinuses and mastoid air cells: Clear. Aplasia of the bilateral frontal sinuses. Visualized orbits: Orbital contents are intact. Cervical spine: Fracture: None. Osseous structures: Multilevel degenerative disc disease changes with endplate spurring and disc oste ophyte complex's. Vertebral alignment: Within normal limits. Spinal canal/Neural Foramina: Disc osteophyte complexes at C6-C7 with at least mild spinal canal sten osis. No evidence for significant neural foraminal stenosis. Neck soft tissues: Prevertebral soft tissues are within normal limits. Other: The airway is patent. The lung apices are clear. Left thyroid lobe hypodense 1.3 cm nodule. IMPRESSION: 1. No acute intracranial process. 2. No evidence of cervical spine fracture. 3. Mild multilevel degenerative disc disease. [facility], , 01/20/2024 11:28 AM
[2024-01-20 11:38] VITALS: BP 128/73
[2024-01-20 12:17] VITALS: PULSE 88; RESP 20
== END 2024-01-20 12:17 | disposition home or self-care (01) ==
LOC: EC 10:24
DX: G40.909 Epilepsy, unspecified, not intractable, without status epilepticus (principal); Z87.891 Personal history of nicotine dependence
CPT/HCPCS: 36415; 80053; 85025; 72125; 70450; 99284; 96374; J2060

== ENCOUNTER → 2024-06-04 | Outpatient (CLI) | payer MEDICAID ==
--- NOTE | 2024-06-04 16:38 | US ---
EXAMINATION TYPE: US thyroid st tissue head/neck DATE OF EXAM: 06/04/2024 COMPARISON: Correlation CT cervical spine 01/20/2024 CLINICAL INDICATION: Female, 49 years old with history of E04.1 NONTOXIC SINGLE THYROID NODULE; Nodul e visualized on CT TECHNIQUE: Grayscale and color Doppler imaging of the thyroid gland. FINDINGS: GLAND SIZE: Right Lobe: 4.7 x 2.3 x 1.5 cm Overall Parenchyma: heterogeneous Left Lobe: 4.5 x 1.8 x 1.7 cm Overall Parenchyma: heterogeneous Isthmus Thickness: 0.3 cm NODULES RIGHT: # of nodules measured on right: 0 LEFT: # of nodules measured on left: 1 1. 1.6 X 1.1 x 1.2 cm, lower, solid, isoechoic TR3 nodule, which is wider than tall, with smooth ma rgins, without echogenic foci. Prior size: 1.[address] ISTHMUS: # of nodules measured in the isthmus: 0 Bilateral neck scanned, no evidence of lymphadenopathy. Nodule left lobe as visualized on CT. IMPRESSION: 1. Heterogeneous thyroid parenchyma could reflect goiter or thyroiditis. Clinically correlate. 2. Solitary 1.6 cm solid TR3 nodule at the left lower pole corresponds to the nodule on CT. TR3: If nodule size is ? 2.5 cm, FNA is recommended. If nodule size is ? 1.5 cm, follow-up imaging at 1, 3, and 5 years is recommended. [facility], Workstation: [email or web address], 06/04/2024 4:35 PM
== END | disposition home or self-care (01) ==
LOC: RADUSWWP 15:48
PROVIDERS: ATTEND Family Medicine
DX: E04.1 Nontoxic single thyroid nodule (principal); E07.89 Other specified disorders of thyroid
CPT/HCPCS: 76536

== ENCOUNTER → 2024-09-01 | Outpatient (CLI) | payer MEDICAID ==
[2024-09-01 20:44] LABS: Follicle Stimulating Hormone 7.1 mIU/mL
== END | disposition home or self-care (01) ==
LOC: LABWHC1 15:14
PROVIDERS: ATTEND Obstetrics & Gynecology
DX: N95.9 Unspecified menopausal and perimenopausal disorder (principal); R53.83 Other fatigue
CPT/HCPCS: 36415; 82397; 82670; 83001; 84144; 84403; 86140

== ENCOUNTER → 2024-09-16 | Outpatient (CLI) | payer MEDICAID ==
--- NOTE | 2024-09-16 17:24 | MM ---
Reason for Exam: Screening (asymptomatic). Last mammogram was performed 2 year(s) and 4 month(s) ago. Patient History: Menarche at age 14. First Full-Term at age 17. Hysterectomy at age 40. Patient used Hormonal Contraceptives for 5 years. 05/04/2020, Benign Cyst Aspiration on the right side. 11/28/2017, Benign Core Biopsy on the left side. 02/25/2013, Benign Cyst Aspiration on the right side. 02/25/2013, Benign Core Biopsy on the right side. Risk Values: Claire 5 year model risk: 1.3%. NCI Lifetime model risk: 10.2%. Prior Study Comparison: 04/19/2020 Bilateral Diagnostic Mammogram, [facility]. 04/21/2021 Bilateral Screening Mammogram, [facility]. 05/15/2022 Bilateral MG 3D screening mammo w/cad, [facility]. Tissue Density: The breasts are heterogeneously dense, which may obscure small masses. Findings: Analyzed By CAD. There is a microclip in either breast from prior biopsies. Areas of asymmetric density are unchanged. There is no suspicious group of microcalcifications or new suspicious mass in either breast. Overall Assessment: Benign, BI-RAD 2 Management: Screening Mammogram of both breasts in 1 year. Patient should continue monthly self-breast exams. A clinical breast exam by your physician is recommended on an annual basis. This exam should not preclude additional follow-up of suspicious palpable abnormalities. Note on Claire scores and lifetime risk: 1. A Claire score greater than 3% is considered moderate risk. If this is the case, consider specialist referral to assess eligibility for a risk reducing agent. 2. If overall lifetime risk for the development of breast cancer is 20% or higher, the patient may qualify for future screening with alternating mammogram and breast MRI. [facility], , 09/16/2024 5:21 PM. Electronically signed and approved by: Tatiana Peralta M.D. Radiologist
== END | disposition home or self-care (01) ==
LOC: RADMAMWWP 14:56
PROVIDERS: ATTEND Obstetrics & Gynecology
DX: Z12.31 Encounter for screening mammogram for malignant neoplasm of breast (principal); R92.333 Mammographic heterogeneous density, bilateral breasts; Z92.0 Personal history of contraception
CPT/HCPCS: 77063; 77067